=== PATIENT | male | born 1980 | race Caucasian/White ===

== ENCOUNTER 2017-09-25 17:38 | Emergency (ER) | payer OTHER ==
[2017-09-25 18:26] VITALS: O2SAT 98
--- NOTE | 2017-09-25 19:54 | C.PDOC ---
History Of Present Illness 37-year-old male, presents to the emergency department with complaints of bilateral wrist, knees and ankle pain for over a month. Patient was seen by a doctor one month ago and had blood work done to r/o gout. Lab test were negative. He was given pain meds that he has been taking with minimal relief, resulting in him coming to the ED for evaluation. Denies any nausea/vomiting, fevers, dizziness, weakness. Time Seen by Provider: 09/25/17 19:24 Chief Complaint (Nursing): Lower Extremity Problem/Injury History Per: Patient History/Exam Limitations: no limitations Onset/Duration Of Symptoms: Days Past Medical History Reviewed: Historical Data, Nursing Documentation, Vital Signs Vital Signs: Last Vital Signs Temp 97.2 F L 09/25/17 20:01 Pulse 77 09/25/17 20:01 Resp 20 09/25/17 20:01 BP 129/71 09/25/17 20:01 Pulse Ox 98 09/25/17 21:26 Family History: States: No Known Family Hx - Social History Hx Alcohol Use: Yes Hx Substance Use: No - Immunization History Hx Tetanus Toxoid Vaccination: No Hx Influenza Vaccination: No Hx Pneumococcal Vaccination: No Review Of Systems Constitutional: Negative for: Fever, Chills Respiratory: Negative for: Shortness of Breath Gastrointestinal: Negative for: Vomiting Musculoskeletal: Positive for: Hand Pain, Foot Pain Neurological: Negative for: Headache Physical Exam - Physical Exam Appears: Non-toxic, No Acute Distress Skin: Warm, Dry, No Rash Head: Atraumatic Eye(s): bilateral: Normal Inspection, PERRL Neck: Normal ROM Chest: Symmetrical Male Genital: Normal Inspection Extremity: Normal ROM, Tenderness (diffusely to b/l hands/ arms. There is minimal swelling to the hand/wrists. No erythema or warmth. No effusion of all joints, Ankles and feet are WNL), No Calf Tenderness, Capillary Refill (<2 seconds), No Deformity Neurological/Psych: Oriented x3, Normal Speech ED Course And Treatment O2 Sat by Pulse Oximetry: 98 Disposition Counseled Patient/Family Regarding: Diagnosis, Need For Followup, Rx Given - Disposition Referrals: [facility] [Outside] Disposition: HOME/ ROUTINE Disposition Time: 19:51 Condition: STABLE Additional Instructions: Apply warm compress to area Take meds as directed Return to ER if worse Prescriptions: Gabapentin 300 mg PO BID #14 capsule Naproxen [Naprosyn] 1 tab PO BID PRN #20 tab PRN Reason: Pain Instructions: Arthralgia (ED) Forms: [employer] (Anguillan) Print Language: GAMBIAN - Clinical Impression Clinical Impression: Pain, joint, multiple sites - Scribe Statement The provider has reviewed the documentation as recorded by the Scribe (Jake Marcano) All medical record entries made by the Scribe were at my direction and personally dictated by me. I have reviewed the chart and agree that the record accurately reflects my personal performance of the history, physical exam, medical decision making, and the department course for this patient. I have also personally directed, reviewed, and agree with the discharge instructions and disposition.
[2017-09-25 20:02] VITALS: BP 129/71; PULSE 77; RESP 20; TEMP 97.2
== END 2017-09-25 20:02 | disposition home or self-care (01) ==
LOC: C.ER 17:38
DX: M25.532 Pain in left wrist (principal); M25.531 Pain in right wrist; M25.572 Pain in left ankle and joints of left foot; M25.571 Pain in right ankle and joints of right foot; M25.562 Pain in left knee; M25.561 Pain in right knee
CPT/HCPCS: 96372; 99284; J1885

== ENCOUNTER → 2017-10-06 | Emergency (ER) | payer OTHER ==
[2017-10-06 16:43] VITALS: BMI 42.3
[2017-10-06 16:47] VITALS: BP 108/74; PULSE 73; RESP 20; TEMP 98.1; O2SAT 98
--- NOTE | 2017-10-06 17:24 | C.PDOC ---
History Of Present Illness CO PERSIST PAIN B/L HANDS X 6 WEEKS. SEEN 09/25 FOR SAME. DC NAPROSYN AND GABAPENTIN WO IMPROVE. PAIN WORSE 2 3,4 FINGERS DIFFICULTY DRESSING SELF DUE TO PAIN. NO TRAUMA. 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 HAS BEEN TRYING TO MAKE APPOINTMENT IN CLINIC "BUT THEY NEVER CALL BACK". NO NEW SX SINCE PRIOR ER EVAL EXAM NAD EXT MILD DIF SWELLING R HAND. AROM WO DIFF. NO FOCAL TEND. NO TENDON DEF. L HAND MIN SWELLING. AROM WO DIFF. SKIN INTACT NO LESIONS, ERYTHEMA NEURO INTACT MDM PT OFFERED ALT PAIN THERAPY, SPLINTING, INTEGRATION DEVELOPER EVAL. TRACK SUPERINTENDENT BECAME VERY AGITATED "I WANT THIS FIXED NOW". ADVISED NEED FOR APPROPRIATE SPECIALIST EVAL AND LIMITATION OF ER VISIT. PT AND TRACK SUPERINTENDENT LEFT PRIOR TO RECEIVING REFERRAL INFO. Time Seen by Provider: 10/06/17 17:04 Chief Complaint (Nursing): Upper Extremity Problem/Injury History Per: Patient History/Exam Limitations: no limitations Onset/Duration Of Symptoms: Days (6 weeks) Current Symptoms Are (Timing): Still Present Past Medical History Reviewed: Historical Data, Nursing Documentation, Vital Signs Vital Signs: Last Vital Signs Temp 98.1 F 10/06/17 16:44 Pulse 73 10/06/17 16:44 Resp 20 10/06/17 16:44 BP 108/74 10/06/17 16:44 Pulse Ox 98 10/06/17 17:27 Family History: States: No Known Family Hx - Social History Hx Alcohol Use: Yes Hx Substance Use: No - Immunization History Hx Tetanus Toxoid Vaccination: No Hx Influenza Vaccination: No Hx Pneumococcal Vaccination: No Review Of Systems Except As Marked, All Systems Reviewed And Found Negative. Cardiovascular: Negative for: Chest Pain Musculoskeletal: Positive for: Hand Pain (bilateral). Negative for: Neck Pain, Shoulder Pain, Back Pain Neurological: Negative for: Weakness, Numbness Physical Exam - Physical Exam Appears: Non-toxic, No Acute Distress Skin: Warm, Dry, No Rash Oral Mucosa: Moist Neck: Normal, Normal ROM, Supple Extremity: Normal ROM, Capillary Refill (<2 secs), Swelling (Right Hand - Diffuse swelling. Left Hand - Minimal swelling.), Other (No focal tenderness. No tendon deficits. Skin intact. No lesions. No erythema.) Neurological/Psych: Oriented x3, Normal Speech, Normal Motor, Normal Sensation ED Course And Treatment O2 Sat by Pulse Oximetry: 98 (RA) Pulse Ox Interpretation: Normal Medical Decision Making Medical Decision Making: NOTE: PT OFFERED ALT PAIN THERAPY, SPLINTING, INTEGRATION DEVELOPER EVAL. TRACK SUPERINTENDENT BECAME VERY AGITATED "I WANT THIS FIXED NOW". ADVISED NEED FOR APPROPRIATE SPECIALIST EVAL AND LIMITATION OF ER VISIT. PT AND TRACK SUPERINTENDENT LEFT PRIOR TO RECEIVING REFERRAL INFO. Disposition - Disposition Disposition: ELOPEMENT - ER ONLY Disposition Time: 17:24 Condition: GOOD Forms: [employer] (Kyrgyz) - Clinical Impression Clinical Impression: Chronic hand pain - Scribe Statement The provider has reviewed the documentation as recorded by the Jose Hale Provider Attestation: All medical record entries made by the Jose were at my direction and personally dictated by me. I have reviewed the chart and agree that the record accurately reflects my personal performance of the history, physical exam, medical decision making, and the department course for this patient. I have also personally directed, reviewed, and agree with the discharge instructions and disposition.
== END | disposition left against medical advice (07) ==
LOC: C.ER 16:19
DX: M79.642 Pain in left hand (principal); M79.641 Pain in right hand; G89.29 Other chronic pain

== ENCOUNTER 2018-04-04 16:47 | Emergency (ER) | payer OTHER ==
[2018-04-04 17:15] VITALS: BMI 43.2
--- NOTE | 2018-04-04 17:43 | C.PDOC ---
History Of Present Illness 37 y/o male presents to the ER complaining of abdominal pain which has been present for the past few days. Patient states that he feels nauseous and he is constipated. According to , she gave him Dulcolax with mild improvement last night. of patient also states that he has subjective low-grade fever. Denies having vomiting, diarrhea, dysuria, and hematuria. Patient notes that he has history of rheumatoid arthritis and he is currently taking Methotrexate and Prednisone. Time Seen by Provider: 04/04/18 17:19 Chief Complaint (Nursing): Abdominal Pain History Per: Patient History/Exam Limitations: no limitations Onset/Duration Of Symptoms: Days Current Symptoms Are (Timing): Still Present Severity: Moderate Associated Symptoms: Constipation. denies: Chills, Diarrhea, Urinary Symptoms Past Medical History Reviewed: Historical Data, Nursing Documentation, Vital Signs Vital Signs: Last Vital Signs Temp 99.4 F 04/04/18 17:17 Pulse 87 04/04/18 17:17 Resp 18 04/04/18 17:17 BP 130/82 04/04/18 17:17 Pulse Ox 95 04/04/18 18:22 - Medical History PMH: Rheumatoid Arthritis Other Surgeries: Hx of surgeries Family History: States: No Known Family Hx - Social History Hx Alcohol Use: Yes Hx Substance Use: No - Immunization History Hx Tetanus Toxoid Vaccination: No Hx Influenza Vaccination: No Hx Pneumococcal Vaccination: No Review Of Systems Except As Marked, All Systems Reviewed And Found Negative. Constitutional: Positive for: Fever (subjective low grade-fever). Negative for : Chills Gastrointestinal: Positive for: Nausea, Abdominal Pain, Constipation. Negative for: Vomiting Genitourinary: Negative for: Dysuria, Hematuria Physical Exam - Physical Exam Appears: Non-toxic, No Acute Distress, Other (obese) Skin: Normal Color, Warm, Dry Head: Atraumatic, Normacephalic Eye(s): bilateral: Normal Inspection Nose: Normal Oral Mucosa: Moist Neck: Supple Chest: Symmetrical Cardiovascular: Rhythm Regular Respiratory: Normal Breath Sounds, No Rales, No Rhonchi, No Wheezing Gastrointestinal/Abdominal: Soft, Tenderness (mild lower abdominal tenderness), No Guarding, No Rebound Neurological/Psych: Oriented x3, Normal Speech ED Course And Treatment - Laboratory Results Result Diagrams: 04/04/18 17:38 04/04/18 17:38 Lab Interpretation: Normal O2 Sat by Pulse Oximetry: 95 (RA) Pulse Ox Interpretation: Normal - CT Scan/US CT-Abd & Pelv. Other Rad Studies (CT/US): Read By Radiologist, Radiology Report Reviewed CT/US Interpretation: Date of service: 04/04/2018. PROCEDURE: CT Abdomen and Pelvis without intravenous contrast. HISTORY: Pain. COMPARISON: None. TECHNIQUE: Unenhanced study. Neither oral nor intravenous contrast administered. Radiation dose: Total exam DLP = 1126.41 mGy-cm. This CT exam was performed using one or more of the following dose reduction techniques: Automated exposure control, adjustment of the mA and/or kV according to patient size, and/or use of iterative reconstruction technique. FINDINGS: LOWER THORAX : Unremarkable. LIVER: Unremarkable. No gross lesion or ductal dilatation. GALLBLADDER AND BILE DUCTS: Unremarkable. PANCREAS: Unremarkable. No gross lesion or ductal dilatation. SPLEEN: Unremarkable. ADRENALS: Unremarkable. No mass. KIDNEYS AND URETERS: Unremarkable. No hydronephrosis. No solid mass. VASCULATURE: Unremarkable. No aortic aneurysm. BOWEL: Diverticulosis without an acute inflammatory component or other associated pathologic process. APPENDIX: Unremarkable. Normal appendix. PERITONEUM: Unremarkable. No free fluid. No free air. LYMPH NODES: Unremarkable. No enlarged lymph nodes. BLADDER: Unremarkable. REPRODUCTIVE: Unremarkable. BONES: No acute fracture. OTHER FINDINGS: None. IMPRESSION: No acute findings related to/ accounting for the clinical presentation. Additional benign and/or incidental findings described above. Progress Note: Treated with IVF NSS, zofran Reassessment Condition: Improved Medical Decision Making Medical Decision Making: Plan: --Labs --CT-Abd & Pelv. --UA --Zofran IV --IV Fluids Disposition Counseled Patient/Family Regarding: Studies Performed, Diagnosis, Need For Followup, Rx Given - Disposition Disposition: HOME/ ROUTINE Disposition Time: 19:00 Condition: STABLE Additional Instructions: Follow up with your PMD for further evaluation Return to ED if any increase symptoms Prescriptions: Polyethylene Glycol 3350 [Miralax] 17 gm PO DAILY PRN #10 [email or web address] PRN Reason: Constipation Instructions: Acute Abdomen (Belly Pain), Adult (DC) Forms: [employer] (Sammarinese) Print Language: THAI - POA Present On Arrival: None - Clinical Impression Clinical Impression: Abdominal pain - PA / RESIZER OPERATOR / Resident Statement MD/DO has reviewed & agrees with the documentation as recorded. - Scribe Statement The provider has reviewed the documentation as recorded by the Scribe Kimberly Duenas Provider Attestation All medical record entries made by the Parvinibankit were at my direction and personally dictated by me. I have reviewed the chart and agree that the record accurately reflects my personal performance of the history, physical exam, medical decision making, and the department course for this patient. I have also personally directed, reviewed, and agree with the discharge instructions and disposition.
[2018-04-04 17:48] LABS: BASO # 0.1 K/uL (0.0-0.2); BASO % 0.5 % (0.0-2.0); EOS # 0.1 K/uL (0.0-0.7); EOS % 0.6 % (0.0-4.0); HEMOGLOBIN 14.4 g/dL (12.0-18.0); LYMPH # 2.8 K/uL (1.0-4.3); LYMPH % 26.3 % (20.0-40.0); MEAN CELL VOLUME 92.5 fL (80.0-94.0); MEAN CORPUSCULAR HEMOGLOBIN 31.8 pg (27.0-31.0); MEAN CORPUSCULAR HGB CONC 34.4 g/dL (33.0-37.0); MEAN PLATELET VOLUME 9.1 fL (7.2-11.7); MONO # 0.8 K/uL (0.0-0.8); MONO % 7.1 % (0.0-10.0); NEUT # 6.9 K/uL (1.8-7.0); NEUT % 65.5 % (50.0-75.0); RBC 4.52 Mil/uL (4.40-5.90); WHITE BLOOD COUNT 10.6 K/uL (4.8-10.8)
[2018-04-04] MEDS: Sodium Chloride 0.9% 1,000 ML IV ONE (17:48)
[2018-04-04] MEDS ORDERED: Sodium Chloride 0.9% 1,000 ML ONE (17:50)
[2018-04-04 18:02] LABS: ALB/GLOB RATIO 1.4 (1.0-2.1); ALBUMIN 4.5 g/dL (3.5-5.0); ALT/SGPT 78 U/L (21-72); AST/SGOT 40 U/L (17-59); BLOOD UREA NITROGEN 12 mg/dL (9-20); CALCIUM 9.2 mg/dl (8.6-10.4); GFR AFRICAN-AMERICAN > 60; GFR NON-AFRICAN AMERICAN > 60; LIPASE 66 U/L (23-300)
--- NOTE | 2018-04-04 18:13 | CT ---
Date of service: 04/04/2018 PROCEDURE: CT Abdomen and Pelvis without intravenous contrast HISTORY: Pain COMPARISON: None. TECHNIQUE: Unenhanced study. Neither oral nor intravenous contrast administered. Radiation dose: Total exam DLP = 1126.41 mGy-cm. This CT exam was performed using one or more of the following dose reduction techniques: Automated exposure control, adjustment of the mA and/or kV according to patient size, and/or use of iterative reconstruction technique. FINDINGS: LOWER THORAX: Unremarkable. LIVER: Unremarkable. No gross lesion or ductal dilatation. GALLBLADDER AND BILE DUCTS: Unremarkable. PANCREAS: Unremarkable. No gross lesion or ductal dilatation. SPLEEN: Unremarkable. ADRENALS: Unremarkable. No mass. KIDNEYS AND URETERS: Unremarkable. No hydronephrosis. No solid mass. VASCULATURE: Unremarkable. No aortic aneurysm. BOWEL: Diverticulosis without an acute inflammatory component or other associated pathologic process. APPENDIX: Unremarkable. Normal appendix. PERITONEUM: Unremarkable. No free fluid. No free air. LYMPH NODES: Unremarkable. No enlarged lymph nodes. BLADDER: Unremarkable. REPRODUCTIVE: Unremarkable. BONES: No acute fracture. OTHER FINDINGS: None. IMPRESSION: No acute findings related to/accounting for the clinical presentation. Additional benign and/or incidental findings described above.
[2018-04-04 18:37] LABS: URINE BILIRUBIN NEGATIVE (NEGATIVE); URINE CLARITY Clear (Clear); URINE COLOR Yellow (YELLOW); URINE GLUCOSE (UA) NORMAL (Normal); URINE LEUKOCYTE ESTERASE NEG Leu/uL (Negative); URINE PROTEIN NEGATIVE (NEGATIVE); URINE UROBILINOGEN NORMAL mg/dL (0.2-1.0)
[2018-04-04 19:04] VITALS: BP 126/78; PULSE 76; RESP 16; TEMP 98.1; O2SAT 100
[2018-04-04 19:46] LABS: URINE BLOOD TRACE (NEGATIVE)
== END 2018-04-04 19:06 | disposition home or self-care (01) ==
LOC: C.ER 16:47
DX: R10.9 Unspecified abdominal pain (principal)
CPT/HCPCS: 74176; 80053; 81001; 83690; 85025; 87086; 96361; 96374; 99284; J2405; J7030

== ENCOUNTER 2018-11-01 10:18 | Outpatient (CLI) | payer BC | END 2018-11-01 10:19 | disposition home or self-care (01) | LOC: C.LAB 10:18 | DX: Z31.41 Encounter for fertility testing (principal) ==

== ENCOUNTER 2018-11-15 14:34 | Emergency (ER) | payer BC ==
[2018-11-15 14:49] VITALS: BMI 46.9
[2018-11-15 15:01] VITALS: BP 113/70; PULSE 72; RESP 18; TEMP 98; O2SAT 97
--- NOTE | 2018-11-15 17:34 | RAD ---
Date of service: 11/15/2018 PROCEDURE: Right Ankle Radiographs. HISTORY: Twist and fall COMPARISON: None available. FINDINGS: BONES: No acute displaced fracture nor dislocation. The osseous structures appear intact. JOINTS: Normal. No osteoarthritis. Ankle mortise maintained. Talar dome intact SOFT TISSUES: Mild soft tissue swelling over the lateral and medial malleoli. OTHER FINDINGS: None. IMPRESSION: No evidence of acute displaced fracture nor dislocation. Mild bilateral soft tissue swelling. Persist or occult fracture suspected clinically recommend repeat radiographs in 7-10 days as most fractures should become radiographically evident in this timeframe.
--- NOTE | 2018-11-15 17:36 | RAD ---
Date of service: 11/15/2018 PROCEDURE: Right Knee Radiographs. HISTORY: twist and fall COMPARISON: None. FINDINGS: BONES: Normal. No fracture. JOINTS: Normal. No osteoarthritis. JOINT EFFUSION: None. OTHER FINDINGS: None. IMPRESSION: No evidence of acute displaced fracture nor dislocation.
--- NOTE | 2018-11-15 19:28 | C.PDOC ---
History Of Present Illness 38 y/o male presents to ER with complaining of right knee pain and right ankle pain which has been present for the past 2 days. Patient states he missed a step and and he twisted his ankle.Patient denies having LOC, head injury, weakness and numbness. Time Seen by Provider: 11/15/18 15:01 Chief Complaint (Nursing): Lower Extremity Problem/Injury History Per: Patient History/Exam Limitations: no limitations Onset/Duration Of Symptoms: Days Current Symptoms Are (Timing): Still Present Severity: Moderate Past Medical History Reviewed: Historical Data, Nursing Documentation, Vital Signs Vital Signs: Last Vital Signs Temp 98.0 F 11/15/18 14:49 Pulse 72 11/15/18 14:49 Resp 18 11/15/18 14:49 BP 113/70 11/15/18 14:49 Pulse Ox 97 11/15/18 14:49 - Medical History PMH: Rheumatoid Arthritis Surgical History: No Surg Hx Family History: States: No Known Family Hx - Social History Hx Alcohol Use: Yes Hx Substance Use: No - Immunization History Hx Tetanus Toxoid Vaccination: No Hx Influenza Vaccination: No Hx Pneumococcal Vaccination: No Review Of Systems Except As Marked, All Systems Reviewed And Found Negative. Musculoskeletal: Positive for: Other (right knee and ankle pain) Neurological: Negative for: Weakness, Numbness Physical Exam - Physical Exam Appears: Non-toxic Skin: Normal Color, Warm, Dry Head: Atraumatic, Normacephalic Eye(s): bilateral: Normal Inspection Nose: Normal Oral Mucosa: Moist Neck: Supple Chest: Symmetrical Extremity: Normal ROM, Tenderness (mild tenderness to right medial malleolus), Swelling (minimal swelling to right medial malleolus), Other (no laxity to right knee) Neurological/Psych: Oriented x3, Normal Speech ED Course And Treatment O2 Sat by Pulse Oximetry: 97 (RA) Pulse Ox Interpretation: Normal - Other Rad X-Ray-Right Knee X-Ray: Viewed By Me, Read By Radiologist Interpretation: Date of service: 11/15/2018. PROCEDURE: Right Knee Radiographs. HISTORY: twist and fall. COMPARISON: None. FINDINGS: BONES: Normal. No fracture. JOINTS: Normal. No osteoarthritis. JOINT EFFUSION: None. OTHER FINDINGS: None. IMPRESSION: No evidence of acute displaced fracture nor dislocation. X-Ray-Right Ankle X-Ray: Viewed By Me, Read By Radiologist Interpretation: Date of service: 11/15/2018. PROCEDURE: Right Ankle Radiographs. HISTORY: Twist and fall. COMPARISON: None available. FINDINGS: BONES: No acute displaced fracture nor dislocation. The osseous structures appear intact. JOINTS: Normal. No osteoarthritis. Ankle mortise maintained. Talar dome intact. SOFT TISSUES: Mild soft tissue swelling over the lateral and medial malleoli. OTHER FINDINGS: None. IMPRESSION: No evidence of acute displaced fracture nor dislocation. Mild bilateral soft tissue swelling. Persist or occult fracture suspected clinically recommend repeat radiographs in 7-10 days as most fractures should become radiographically evident in this timeframe. Disposition - Disposition Disposition: ELOPEMENT - ER ONLY Disposition Time: 16:15 Condition: STABLE Forms: [employer] (Spanish) - Clinical Impression Clinical Impression: History of elopement from health care facility - Scribe Statement The provider has reviewed the documentation as recorded by the Scribe Kimberly Duenas Provider Attestation: All medical record entries made by the Scribe were at my direction and personally dictated by me. I have reviewed the chart and agree that the record accurately reflects my personal performance of the history, physical exam, medical decision making, and the department course for this patient. I have also personally directed, reviewed, and agree with the discharge instructions and disposition.
== END 2018-11-15 17:55 | disposition left against medical advice (07) ==
LOC: C.ER 14:34
DX: Z02.89 Encounter for other administrative examinations (principal); M25.561 Pain in right knee; M25.571 Pain in right ankle and joints of right foot; M06.9 Rheumatoid arthritis, unspecified